=== PATIENT | male | born 1985 | race Asian ===

== ENCOUNTER 2018-03-20 17:47 | Emergency (ER) | payer OTHER ==
[~2018-03-20] VITALS: Ht 170.2 cm; Wt 67.1 kg
[2018-03-20 18:03] VITALS: BP 137/94
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
[2018-03-20] MEDS ORDERED: IBUPROFEN600 MG ORAL (20:22)
[2018-03-20] MEDS ORDERED: BACTROBAN15 GM TOPIC (20:22)
[2018-03-20 20:32] VITALS: BP 132/90
[2018-03-20 20:33] VITALS: BP 135/90
== END 2018-03-20 20:32 | disposition home or self-care (01) ==
LOC: EMR 20:15
DX: S00.33XA Contusion of nose, initial encounter (principal); S50.812A Abrasion of left forearm, initial encounter; S50.811A Abrasion of right forearm, initial encounter; S00.211A Abrasion of right eyelid and periocular area, initial encounter; V43.52XA Car driver injured in collision with other type car in traffic accident, initial encounter; Y92.410 Unspecified street and highway as the place of occurrence of the external cause
CPT/HCPCS: 70486; 99284